=== PATIENT | male | born 1935 | race Caucasian/White ===

== ENCOUNTER 2016-07-17 16:29 | Emergency (ER) | payer MEDICARE ==
[2016-07-17 17:00] VITALS: BP 125/64
--- NOTE | 2016-07-17 17:09 | UC ---
Skin Complaint HPI - History of Current Complaint Chief Complaint: UCSkin Time Seen by Provider: 07/17/16 17:02 Stated Complaint: RIGHT BIG TOE PAIN Hx Obtained From: Patient Onset/Duration: Sudden Onset, Lasting Weeks - 1, Worse Since - onset Skin Exposure Onset/Duration: Weeks Ago - 1 Onset Severity: Mild Current Severity: Moderate Location: Discrete - Most redness warmth and swelling over the 1st MTP but extending across the MTP's with redness over the 3rd toe., Foot (Right) Character: Pain, Redness, Raised, Painful Aggravating: Touch, Other - walking. Alleviating: Nothing Associated Signs & Symptoms: Positive: Chills, Tenderness, Joint Swelling - over the first MTP Related History: Possible Reaction to: Insect - Allergy/Home Medications Allergies/Adverse Reactions: Allergies Allergy/AdvReac Type Severity Reaction Status Date / Time No Known Allergies Allergy Verified 07/17/16 17:00 Review of Systems Constitutional: Chills Skin: Other Musculoskeletal: Edema - over the 1st MTP All Other Systems Reviewed And Are Negative: Yes PMH/Surg Hx/FS Hx/Imm Hx Endocrine History Of: Reports: Diabetes - Surgical History Surgical History: Yes Surgery Procedure, Year, and Place: PROSTATE - Family History Known Family History: Positive: Diabetes Negative: Cardiac Disease, Hypertension - Social History Occupation: Retired Lives: Alone Alcohol Use: None Substance Use Type: None Smoking Status (MU): Never Smoked Tobacco Have You Smoked in the Last Year: No - Immunization History Most Recent Influenza Vaccination: 2013 Most Recent Tetanus Shot: unknown Most Recent Pneumonia Vaccination: 2013 Physical Exam Triage Information Reviewed: Yes Appearance: Well-Appearing, Well-Nourished, Pain Distress - with walking. Vital Signs: Initial Vital Signs Temp 99.1 F 07/17/16 16:54 Pulse 92 07/17/16 16:54 Resp 18 07/17/16 16:54 BP 125/64 07/17/16 16:54 Pulse Ox 96 07/17/16 16:54 Vital Signs Reviewed: Yes Eyes: Positive: Conjunctiva Clear Neck exam: Normal Respiratory Exam: Normal Cardiovascular Exam: Normal Musculoskeletal: Positive: ROM Limited @ - right 1st MTP. Neurological Exam: Normal Psychological Exam: Normal Skin: Positive: Other - redness over the MTP. Course/Dx - Differential Diagnoses - Skin Complaint Differential Diagnoses: Abscess, Cellulitis, Erythema Multiforme, Tick Born Illness - Diagnoses Provider Diagnoses: Cellulitis right foot. Discharge - Discharge Plan Condition: Stable Disposition: HOME Prescriptions: Cephalexin CAP* [Keflex 500 CAP*] 500 mg PO QID #40 cap Patient Education Materials: Cellulitis (ED), Cephalexin (By mouth) Referrals: Misha Mai DO [Medical Doctor] - 2 Days (follow up to make sure its getting better. If not better may need treatment for gout.) Additional Instructions: It could also be gout.
== END 2016-07-17 17:33 | disposition home or self-care (01) ==
LOC: UCCORT 16:29
DX: L03.115 Cellulitis of right lower limb (principal); E11.9 Type 2 diabetes mellitus without complications
CPT/HCPCS: 99212; G0463

== ENCOUNTER 2018-09-29 11:41 | Emergency (ER) | payer MEDICARE ==
[2018-09-29 11:59] VITALS: BP 117/68
--- NOTE | 2018-09-29 12:34 | UC ---
General HPI - HPI Summary HPI Summary: AROUND 10:30 THIS AM, PT SUDDENLY FELT DIZZY, SHORT OF BREATH AND HAD EPIGASTRIC PAIN. HE DESCRIBES THE DIZZINESS LIKE HE WAS GOING TO PASS OUT. HE WAS PICKING UP TREE LIMBS AT THE TIME. HE DENIES NAUSEA AND IS UNCERTAIN ABOUT SWEATING. HE FEELS BETTER NOW. HE DENIES ANY HX OF HEART PROBLEMS. EPISODE LASTED ABOUT 15-20 MINUTES. A NEIGHBOR CALLED HIS DAUGHTER WHO CAME AND BROUGHT HIM HERE. - History of Current Complaint Chief Complaint: UCAbdominalPain Stated Complaint: DIZZY,FAINT,ABD PAIN Time Seen by Provider: 09/29/18 12:28 Hx Obtained From: Patient, Family/Supervisor Multifocal Lens Pain Intensity: 0 Alleviating: resting under a tree then inside his home - Allergy/Home Medications Allergies/Adverse Reactions: Allergies Allergy/AdvReac Type Severity Reaction Status Date / Time No Known Allergies Allergy Verified 09/29/18 11:59 Home Medications: Home Medications Fenofibrate [Tricor 160 MG] 160 mg PO DAILY 09/29/18 [History Confirmed 09/29/18 ] Psyllium SHANNON* [Metamucil SHANNON*] 1 pkt PO DAILY 09/29/18 [History Confirmed ] PMH/Surg Hx/FS Hx/Imm Hx - Additional Past Medical History Additional PMH: BPH Endocrine History: Diabetes, Dyslipidemia - Surgical History Surgical History: Yes Surgery Procedure, Year, and Place: PROSTATE - Family History Known Family History: Positive: Diabetes Negative: Cardiac Disease, Hypertension - Social History Occupation: Retired Alcohol Use: None Substance Use Type: None Smoking Status (MU): Never Smoked Tobacco Have You Smoked in the Last Year: No - Immunization History Most Recent Influenza Vaccination: 2013 Most Recent Tetanus Shot: unknown Most Recent Pneumonia Vaccination: 2013 Review of Systems All Other Systems Reviewed And Are Negative: Yes Respiratory: Positive: Shortness Of Breath. Negative: Cough Cardiovascular: Negative: Palpitations Gastrointestinal: Positive: Other - epigastric pain Physical Exam Triage Information Reviewed: Yes Appearance: Well-Appearing Vital Signs: Initial Vital Signs Temp 97.0 F 09/29/18 11:46 Pulse 98 09/29/18 11:46 Resp 16 09/29/18 11:46 BP 117/68 09/29/18 11:46 Pulse Ox 96 09/29/18 11:46 Vital Signs Reviewed: Yes Eyes: Positive: Conjunctiva Clear ENT: Negative: Nasal congestion Neck: Positive: Supple, Nontender, No Lymphadenopathy, Other: - no jvd or carotid bruits. Respiratory: Positive: Lungs clear, No respiratory distress Cardiovascular: Positive: RRR, No Murmur, Pulses Normal - BUE's Abdomen Description: Positive: Nontender, No Organomegaly, Soft. Negative: Pulsatile Mass Bowel Sounds: Positive: Present Musculoskeletal: Positive: ROM Intact, No Edema Neurological: Positive: Alert Psychological: Positive: Normal Response To Family, Age Appropriate Behavior Skin Exam: Normal Diagnostics - EKG Cardiac Rate: NL Cardiac Rhythm: Sinus: Normal Ectopy: None ST Segment: Normal Course/Dx - Course Course Of Treatment: [facility] called. Report given to Genoveva Trujillo LUBRICATION WORKER. 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 I advised coming via car, refused ems. - Differential Dx - Multi-Symptom Differential Diagnoses: Other - concern for arrythmia and cardiopulmonary pathology. do not feel AA. ekg no arrythmia. pt agrees to ER transfer but declined ems despite risk for mva, delay of care, worsening, disability and . he is a&ox3 and able to make decisions thus I must respect that he is refusing ems. pt's daughter is driving him to the ER. - Diagnoses Provider Diagnosis: Near syncope, Dyspnea, Epigastric pain Discharge - Sign-Out/Discharge Documenting (check all that apply): Patient Departure All imaging exams completed and their final reports reviewed: No Studies - Discharge Plan Condition: Stable Disposition: HOME Referrals: Kaya Mercedes [Primary Care Provider] - Additional Instructions: LEAVE HERE AND GO DIRECTLY TO THE [facility] DISCUSSED - Billing Disposition and Condition Condition: STABLE Disposition: Home
== END 2018-09-29 12:56 | disposition home or self-care (01) ==
LOC: UCCORT 11:41
DX: R55 Syncope and collapse (principal); R06.00 Dyspnea, unspecified; R10.13 Epigastric pain; E11.9 Type 2 diabetes mellitus without complications
CPT/HCPCS: 93005; 99211; G0463